=== PATIENT | female | born 1955 | race Hispanic/Latino ===

== ENCOUNTER 2022-01-22 21:32 | Emergency (ER) | payer MEDICARE ==
[~2022-01-22] VITALS: Ht 152.4 cm; Wt 59.0 kg
[2022-01-22] MEDS ORDERED: LAMICTAL5 MG PO ×2 (22:10→22:16)
[2022-01-22] MEDS ORDERED: ACETAMINOPHEN-1 EAC4 PO (22:16)
== END 2022-01-22 22:20 | disposition home or self-care (01) ==
LOC: ER 21:58
DX: G50.0 Trigeminal neuralgia (principal)
CPT/HCPCS: 99282